=== PATIENT | female | born 1970 | race African-American/Black ===

== ENCOUNTER → 2019-05-07 | Outpatient (CLI) | payer BC ==
--- NOTE | 2019-05-07 16:28 | KCIC ---
EXAM: Facial bones, 2 views. HISTORY: Pain. COMPARISON: None. FINDINGS: 2 views of the facial bones are obtained. There is no sinus opacification or air-fluid level. There is no nasal septal deviation. No suspicious osseous lesion is seen. IMPRESSION: No acute osseous finding. Electronically signed by: Lamar Cm MD (05/07/2019 4:25 PM) [id number]
== END | disposition home or self-care (01) ==
LOC: KCIC 15:19
PROVIDERS: ATTEND Nurse Practitioner Family
DX: R51 Headache (principal)
CPT/HCPCS: 70140